=== PATIENT | male | born 1970 | race Caucasian/White ===

== ENCOUNTER 2018-11-23 08:33 | Emergency (ER) | payer OTHER, SELFPAY ==
--- NOTE | 2018-11-23 09:01 | DI.CT.S_ITS ---
PROCEDURE: CT HEAD/BRAIN WO CON INDICATIONS: dizziness, leaning to right side. TECHNIQUE: Noncontrast 4.5 mm thick angled axial sections acquired from the foramen magnum to the vertex, with coronal and sagittal reformats. For radiation dose reduction, the following was used: automated exposure control, adjustment of mA and/or kV according to patient size. COMPARISON: None. FINDINGS: Image quality: Diagnostic. CSF spaces: Basal cisterns are patent. No extra-axial fluid collections. Ventricles are normal in size and shape. Brain: No midline shift. No intracranial masses or hemorrhage. Hassan-white matter interface is normal. Skull and face: Calvarium and visualized facial bones are intact, without suspicious lesions. Sinuses: Visualized sinuses and mastoids are clear. IMPRESSION: Negative head CT. No acute intracranial hemorrhage. Dictated by: Javon Perry M.D. on 11/23/2018 at 8:31 Approved by: Javon Perry M.D. on 11/23/2018 at 8:32
[2018-11-23 09:21] VITALS: BP 145/81; PULSE 59; RESP 16; TEMP 36.8; O2SAT 97; BMI 31.4
[2018-11-23 09:24] LABS: Add Manual Diff / Slide Review NO; Basophils Absolute Auto 0 /uL (0-100); Basophils Percent Auto 0.5 % (0-2); Eosinophils Absolute Auto 300 /uL (0-450); Hematocrit 47.3 % (41-53); Hemoglobin 16.5 g/dL (13.5-17.5); Lymphocytes Absolute Auto 2000 /uL (1100-4500); Lymphocytes Percent Auto 22.1 % (25-40); Mean Corpuscular HGB Conc 34.9 % (30-36); Mean Corpuscular Hemoglobin 31.4 PG (26-34); Mean Corpuscular Volume 89.8 fL (80-100); Monocytes Absolute Auto 600 /uL (0-900); Monocytes Percent Auto 6.5 % (3-14); Neutrophils Absolute Auto 6100 /uL (1500-7000); Neutrophils Percent Auto 67.9 % (50-75); Platelet Count 229 X10^3/uL (150-400); Red Blood Cell Count 5.27 X10^6/uL (4.5-5.9)
[2018-11-23 09:38] LABS: BUN Creatinine Ratio 18.8 (6-22); Blood Urea Nitrogen 15 mg/dL (9-20); Calcium 9.5 mg/dL (8.4-10.2); Carbon Dioxide 22 mmol/L (22-32); Chloride 105 mmol/L (98-107); Estimated Glomerular Filt Rate > 60.0 mL/min (>60); Glucose 92 mg/dL (70-100); HEMOLYSIS 15 (0-50); Potassium 3.8 mmol/L (3.4-5.1); Sodium 138 mmol/L (137-145)
--- NOTE | 2018-11-23 09:39 | ED_ITS ---
HPI - Dizziness General Chief Complaint: Dizziness Stated Complaint: DIZZINESS/LEANS TO RIGHT/METALIC TASTE/LT HAND TIN Time Seen by Provider: 11/23/18 09:18 Source: patient Mode of arrival: ambulatory Limitations: no limitations History of Present Illness HPI Narrative: Patient is a 47-year-old male who presents with trouble walking. He says that for the last 5 days he walks to the right. It is not all the time in fact yesterday he was better today however at work he was leaning to the right he denies any dizziness lightheadedness he had some numbness in his left hand once on no specific weakness he has no nausea vomiting he has no sense of room spinning is no chest pain or heart palpitations. He feels like his symptoms have resolved now. MD complaint: lightheadedness Associated symptoms: ataxia Related Data Home Medications Medication Instructions Recorded Confirmed simvastatin 10 mg PO QPM #0 11/05/16 11/23/18 Bromelain 1 cap PO DAILY 11/23/18 11/23/18 Cinnamon 1 cap PO DAILY 11/23/18 11/23/18 aspirin 81 mg PO DAILY 11/23/18 11/23/18 garlic 1 tab PO DAILY 11/23/18 11/23/18 niacin 1 tab PO DAILY 11/23/18 11/23/18 omeprazole 20 mg PO Q OTHER DAY 11/23/18 11/23/18 Allergies Allergy/AdvReac Type Severity Reaction Status Date / Time Penicillins [PENICILLINS] Allergy Unknown Verified 11/23/18 09:21 Review of Systems Review of Systems ROS Unobtainable: All systems reviewed & are unremarkable except as noted in HPI and below Constitutional Denies chills, Denies fever(s), Denies frequent falls, Denies headache(s), De nies lethargy and Denies weakness Eyes Denies blurry vision, Denies change in vision, Denies diplopia, Denies eye discharge, Denies irritation and Denies loss of vision ENT Ears, Nose, Mouth, and Throat: Denies change in voice, Denies vertigo, Denies dizziness, Denies headache(s), Denies neck pain, Reports disequilibrium and Denies sore throat Cardiovascular Denies chest pain, Denies syncope, Denies irregular heart rhythm, Denies lightheadedness, Denies palpitations, Denies dyspnea, Denies dyspnea on exertion and Denies orthopnea Respiratory Denies cough, Denies dyspnea, Denies dyspnea on exertion and Denies wheezing Gastrointestinal Gastrointestinal: Denies abdominal pain, Denies change in bowel habits, Denies diarrhea, Denies nausea and Denies vomiting Musculoskeletal Denies neck pain Integumentary/Breasts Denies pruritus, Denies erythema, Denies rash and Denies wounds Neurologic Reports as per HPI, Denies confusion, Denies vertigo, Denies dizziness, Denies syncope, Denies frequent falls, Denies headache(s), Denies loss of vision, Denies convulsions, Denies sensory deficit, Reports disequilibrium and Denies weakness Psychiatric Denies anxiety, Denies confusion, Denies depression, Denies homicidal ideation and Denies suicidal ideation Endocrine Denies palpitations Allergic/Immunologic Denies wheezing [facility] Medical History Hyperlipidemia (Acute) Social History (Updated 11/23/18 @ 09:38 by Jeannie Islas DO) Smoking Status: Never smoker alcohol intake: never substance use type: does not use Social History Smoking Status: Never smoker alcohol intake: never substance use type: does not use Exam Initial Vital Signs Initial Vital Signs: Vital Signs Temperature 98.2 F 11/23/18 09:21 Pulse Rate 59 L 11/23/18 09:21 Respiratory Rate 16 11/23/18 09:21 Blood Pressure 145/81 H 11/23/18 09:21 Pulse Oximetry 97 11/23/18 09:21 GENERAL: Well-appearing, well-nourished and in no acute distress. Talking on self HEENT: Head atraumatic,EOMI, pupils reactive, face symmetric, moist mucous membranes CARDIOVASCULAR: Regular rate and rhythm without murmurs, rubs or gallops. RESPIRATORY: Breath sounds equal bilaterally, no wheezes rales or rhonchi. ABDOMEN: Soft, nontender. Normoactive bowel sounds all 4 quadrants. No guarding or rebound. EXTREMITIES: Normal range of motion, no clubbing or edema. Neurovascularly intact NEUROLOGICAL: Alert and oriented x4.Normal gait and speech. Transportation Superintendent strength equal bilaterally good finger to nose good heel to larios bilaterally. No speech difficulty SKIN: Warm, dry, no laceration, no petechiae, no rashes or lesions. Scores NIH Stroke Scale Level of Conciousness: Alert, keenly responsive Ask month/age: Answers both questions correctly. Open/close eyes, close hand: Performs both tasks correctly Best gaze horizontal: Normal Visual mayer: No visual loss Facial palsy: Normal symetrical movement Left arm drift: No drift for full 10 sec Right arm drift: No drift for full 10 sec Left leg drift: No drift for full 10 sec Right leg drift: No drift for full 10 sec Limb ataxia: Absent Sensory on face/arms/legs: Normal, no sensory loss Best language: No aphasia, normal Dysarthria: Normal Extinction or inattention: No abnormality Total NIH Stroke scale score: 0 Course Orders Ordered: ED Orders 11/23/18 09:57 EKG-12 Lead Stat 11/23/18 10:49 CT angio head and neck Stat Vital Signs - 8 hr 11/23/18 11:00 Pulse Rate 54 L Respiratory Rate 18 Blood Pressure [Right Arm] 140/70 Pulse Oximetry 96 MDM - Dizziness Lab Data Attestation: I reviewed the patient's lab results. Result diagrams: 11/23/18 09:15 11/23/18 09:15 Lab Results 11/23/18 11/23/18 Range/Units 09:15 09:15 WBC 9.0 (4.5-11.0) X10^3/uL RBC 5.27 (4.5-5.9) X10^6/uL Hgb 16.5 (13.5-17.5) g/dL Hct 47.3 (41-53) % MCV 89.8 (80-100) fL MCH 31.4 (26-34) PG MCHC 34.9 (30-36) % RDW 13.0 (11.6-14.8) % Plt Count 229 (150-400) X10^3/uL Neut % (Auto) 67.9 (50-75) % Lymph % (Auto) 22.1 L (25-40) % Boyd % (Auto) 6.5 (3-14) % Eos % (Auto) 3.0 (2-4) % Baso % (Auto) 0.5 (0-2) % Neut # (Auto) 6100 (5133-4755) /uL Lymph # (Auto) 2000 (0312-0669) /uL Boyd # (Auto) 600 (0-900) /uL Eos # (Auto) 300 (0-450) /uL Baso # (Auto) 0 (0-100) /uL Sodium 138 (137-145) mmol/L Potassium 3.8 (3.4-5.1) mmol/L Chloride 105 (98-107) mmol/L Carbon Dioxide 22 (22-32) mmol/L BUN 15 (9-20) mg/dL Creatinine 0.80 (0.66-1.25) mg/dL Estimated GFR > 60.0 (>60) mL/min BUN/Creatinine Ratio 18.8 (6-22) Glucose 92 (70-100) mg/dL Calcium 9.5 (8.4-10.2) mg/dL Troponin I < 0.012 (0.01-0.034) ng/mL Urine Dip Bedside Urine Glucose Negative Bedside Urine Bilirubin - Negative Bedside Urine Ketone +/- 5 Urine Specific [place] 1.015 Bedside Urine Occult Blood - Negative Bedside Urine pH 6.0 Bedside Urine Protein - Negative Bedside Urine Urobilinogen - Negative Bedside Urine Nitrite - Negative Bedside Urine Leukocytes - Negative Esterase Imaging Data CTA Head: Radiologist's impression: PROCEDURE: CT ANGIO HEAD AND NECK INDICATIONS: leaning to right while walking TECHNIQUE: Pre-contrast 4.5 mm thick sections acquired from the foramen magnum to the vertex. After the administration of intravenous contrast, 1 mm thick sections acquired from the aortic arch through the [place] of [place]. Post-contrast 4.5 mm thick sections then re- acquired from the foramen magnum to the vertex. 3-dimensional maximum-intensity- projection (MIP) and/or volume rendering reformats were acquired of the central intracranial vasculature and neck separately. COMPARISON: [facility], CT, CT HEAD/BRAIN WO CON, 11/23/2018, 9:07. FINDINGS: Image quality: Excellent. BRAIN: CSF spaces: Ventricles are normal in size and shape. Basal cisterns are patent. No extra-axial fluid collections. Brain: No midline shift. No masses. Hassan-white matter interface appears intact. Skull and face: Calvarium and facial bones appear intact, without suspicious lesions. Orbits appear normal. Sinuses: Bilateral maxillary sinus mucosal thickening. mastoids are clear. HEAD CT ANGIOGRAPHY: Anterior circulation: Intracranial internal carotid arteries are normal in size and flow. The flow within the paired anterior cerebral arteries is normal and symmetric. Minimal atherosclerotic calcifications of the supraclinoid segment of the right internal carotid artery without hemodynamically significant stenosis. The flow within the middle cerebral arteries is normal and symmetric. The anterior communicating artery is seen. No aneurysms are seen. Posterior circulation: Visualized portions of the vertebral arteries demonstrate normal caliber, and join to form a normal appearing basilar artery. Flow within the posterior cerebral arteries is normal and symmetric. No aneurysms are seen. NECK CT ANGIOGRAPHY: Carotid system: The great vessels demonstrate a conventional anatomy as they arise from the aortic arch. The origins of the common carotid arteries appear patent. The common carotid arteries demonstrate normal caliber and courses. The bifurcation regions are both widely patent. The internal carotid arteries demonstrate normal calibers and courses. Posterior circulation: The origins of the vertebral arteries both appear widely patent. The more superior extracranial portions of both vertebral arteries also demonstrate normal courses and calibers. They join to form a normal appearing basilar artery. Soft tissues: Visualized neck soft tissues demonstrate no suspicious abnormalities. Bones: No suspicious bony lesions. Visualized cervical spine appears normally aligned. Mild multilevel cervical spondylosis. IMPRESSION: Negative CT angiogram of the head and neck. Minimal intracranial atherosclerosis involving the supraclinoid right internal carotid artery without hemodynamically significant stenosis. Any quantitative measurements of stenosis were performed using NASCET criteria. Dictated by: Duarte Garcia M.D. on 11/23/2018 at 11:24 CT scan - head: Radiologist's impression: PROCEDURE: CT HEAD/BRAIN WO CON INDICATIONS: dizziness, leaning to right side. TECHNIQUE: Noncontrast 4.5 mm thick angled axial sections acquired from the foramen magnum to the vertex, with coronal and sagittal reformats. For radiation dose reduction, the following was used: automated exposure control, adjustment of mA and/or kV according to patient size. COMPARISON: None. FINDINGS: Image quality: Diagnostic. CSF spaces: Basal cisterns are patent. No extra-axial fluid collections. Ventricles are normal in size and shape. Brain: No midline shift. No intracranial masses or hemorrhage. Hassan-white matter interface is normal. Skull and face: Calvarium and visualized facial bones are intact, without suspicious lesions. Sinuses: Visualized sinuses and mastoids are clear. IMPRESSION: Negative head CT. No acute intracranial hemorrhage. Dictated by: Javon Perry M.D. on 11/23/2018 at 8:31 ECG Data Attestation: I personally reviewed and interpreted this ECG as follows: Prior ECG tracings: not available for review Interpretation: Normal sinus rhythm rate [address] changes per interval 176 no priors to compare MDM Narrative Medical decision making narrative: I personally did an ambulation trial of patient myself. He does not actually leaned to the right over his symptoms do not fit with classic vertigo. He does not have sense of room spinning he has no nausea or vomiting. Symptoms are purely chest difficulty walking and leaning to 1 side. This time I think it is worthwhile to do a CTA to rule out any sort of obstruction and the CT carotid arteries as well. CTA was negative. Patient remains asymptomatic he is upright while ambulating he feels like his symptoms have completely resolved. Symptoms are not consistent with TIA or CVA. At this time have patient follow-up and return as needed. I did discuss with him specific warning signs and when to return to the ED. Discharge Plan Departure Patient Disposition: Home Clinical Impression: Vertigo Discharge Date/Time: 11/23/18 11:49 Interventions: ED Discharge Assessment Last Done: 11/23/18 11:49 Instructions: DI for Vertigo Activity Restrictions/Additional Instructions: *You have been diagnosed with vertigo *What to do: Vertigo stops suddenly as it starts. Both CTs of her head today are negative for stroke. *Continue to take medications as directed *Follow up with your primary care provider in 2-3 days *Return to ER if you should have weakness, persistent dizziness, vomiting, passing out or any new, worsening or concerning symptoms Prescriptions: No Action simvastatin 10 MG tablet 10 mg PO QPM Qty: 0 RF: 0 omeprazole 20 mg capsule,delayed release(DR/EC) 20 mg PO Q OTHER DAY RF: 0 aspirin 81 mg Tablet,Delayed Release (Dr/Ec) 81 mg PO DAILY RF: 0 garlic Tablet 1 tab PO DAILY RF: 0 Bromelain 1 cap PO DAILY RF: 0 Cinnamon 1 cap PO DAILY RF: 0 niacin 1 tab PO DAILY RF: 0
[2018-11-23 09:50] LABS: Troponin I < 0.012 ng/mL (0.01-0.034)
--- NOTE | 2018-11-23 10:49 | DI.CT.S_ITS ---
PROCEDURE: CT ANGIO HEAD AND NECK INDICATIONS: leaning to right while walking TECHNIQUE: Pre-contrast 4.5 mm thick sections acquired from the foramen magnum to the vertex. After the administration of intravenous contrast, 1 mm thick sections acquired from the aortic arch through the [place] of [place]. Post-contrast 4.5 mm thick sections then re-acquired from the foramen magnum to the vertex. 3-dimensional apgugii-dzjcsonem-zdraxbmivo (MIP) and/or volume rendering reformats were acquired of the central intracranial vasculature and neck separately. COMPARISON: [facility], CT, CT HEAD/BRAIN WO CON, 11/23/2018, 9:07. FINDINGS: Image quality: Excellent. BRAIN: CSF spaces: Ventricles are normal in size and shape. Basal cisterns are patent. No extra-axial fluid collections. Brain: No midline shift. No masses. Hassan-white matter interface appears intact. Skull and face: Calvarium and facial bones appear intact, without suspicious lesions. Orbits appear normal. Sinuses: Bilateral maxillary sinus mucosal thickening. mastoids are clear. HEAD CT ANGIOGRAPHY: Anterior circulation: Intracranial internal carotid arteries are normal in size and flow. The flow within the paired anterior cerebral arteries is normal and symmetric. Minimal atherosclerotic calcifications of the supraclinoid segment of the right internal carotid artery without hemodynamically significant stenosis. The flow within the middle cerebral arteries is normal and symmetric. The anterior communicating artery is seen. No aneurysms are seen. Posterior circulation: Visualized portions of the vertebral arteries demonstrate normal caliber, and join to form a normal appearing basilar artery. Flow within the posterior cerebral arteries is normal and symmetric. No aneurysms are seen. NECK CT ANGIOGRAPHY: Carotid system: The great vessels demonstrate a conventional anatomy as they arise from the aortic arch. The origins of the common carotid arteries appear patent. The common carotid arteries demonstrate normal caliber and courses. The bifurcation regions are both widely patent. The internal carotid arteries demonstrate normal calibers and courses. Posterior circulation: The origins of the vertebral arteries both appear widely patent. The more superior extracranial portions of both vertebral arteries also demonstrate normal courses and calibers. They join to form a normal appearing basilar artery. Soft tissues: Visualized neck soft tissues demonstrate no suspicious abnormalities. Bones: No suspicious bony lesions. Visualized cervical spine appears normally aligned. Mild multilevel cervical spondylosis. IMPRESSION: Negative CT angiogram of the head and neck. Minimal intracranial atherosclerosis involving the supraclinoid right internal carotid artery without hemodynamically significant stenosis. Any quantitative measurements of stenosis were performed using NASCET criteria. Dictated by: Duarte Garcia M.D. on 11/23/2018 at 11:24 Approved by: Duarte Garcia M.D. on 11/23/2018 at 11:39
[2018-11-23 11:00] VITALS: BP 140/70; PULSE 54; RESP 18; O2SAT 96
== END 2018-11-23 11:49 | disposition home or self-care (01) ==
PROVIDERS: Emergency Provider Emergency Medicine
DX: R42 Dizziness and giddiness (principal)
CPT/HCPCS: 36591; 70450; 70496; 70498; 80048; 81003; 84484; 85025; 93005; 99282; 99285; Q9967

== ENCOUNTER → 2020-11-12 09:14 | Outpatient (CLI) | payer OTHER, SELFPAY ==
[2020-11-12] MEDS: COVID-19 VACC #1, MRNA(MOD) 100 MCG/0.5 ML VIAL IM (09:32)
== END ==
PROVIDERS: Visit Provider Internal Medicine
DX: Z23 Encounter for immunization (principal)
CPT/HCPCS: 0011A; 91301

== ENCOUNTER → 2020-12-10 08:44 | Outpatient (CLI) | payer OTHER, SELFPAY ==
[2020-12-10] MEDS: COVID-19 VACC #2, MRNA(MOD) 100 MCG/0.5 ML VIAL IM (08:56)
== END ==
PROVIDERS: Visit Provider Internal Medicine
DX: Z23 Encounter for immunization (principal)
CPT/HCPCS: 0012A; 91301

== ENCOUNTER → 2024-06-07 08:31 | Outpatient (CLI) | payer OTHER, SELFPAY ==
--- NOTE | 2024-06-07 08:35 | EKG_ITS ---
[id number] [place] [address] Test Date: 2024-06-07 Pat Name: Jacinto Guerrier Department: Room: Gender: Male Oncology Admin: : 1970 Requested By: Order Number: [id number] Reading MD: Terrence Paulino MD Measurements Intervals Marlette Rate: 69 P: 9 MO: 170 QRS: -48 QRSD: 96 T: 8 QT: 382 QTc: 409 Interpretive Statements Normal sinus rhythm with sinus arrhythmia Left anterior fascicular block Electronically Signed On 06-08-2024 7:31:31 PDT by Terrence Paulino MD
[2024-06-07 10:29] LABS: Add Manual Diff / Slide Review NO; Basophils Absolute Auto 0 /uL (0-100); Basophils Percent Auto 0.6 % (0-2); Eosinophils Absolute Auto 300 /uL (0-450); Eosinophils Percent Auto 3.6 % (2-4); Hematocrit 44.5 % (41-53); Hemoglobin 15.5 g/dL (13.5-17.5); Lymphocytes Absolute Auto 2300 /uL (1100-4500); Lymphocytes Percent Auto 27.7 % (25-40); Mean Corpuscular HGB Conc 34.9 % (30-36); Mean Corpuscular Hemoglobin 31.1 PG (26-34); Monocytes Absolute Auto 500 /uL (0-900); Monocytes Percent Auto 5.6 % (3-14); Neutrophils Absolute Auto 5200 /uL (1500-7000); Neutrophils Percent Auto 62.5 % (50-75); Platelet Count 278 X10^3/uL (150-400); Red Cell Distribution Width 13.6 % (11.6-14.8); White Blood Cell Count 8.3 X10^3/uL (4.5-11.0)
[2024-06-07 10:47] LABS: Hemoglobin A1C% w Est Avg Glu 5.1 % (4.0-6.0)
[2024-06-07 10:56] LABS: Albumin 4.5 g/dL (3.5-5.0); BUN Creatinine Ratio 17.9 (6-22); Blood Urea Nitrogen 12 mg/dL (9-20); Calcium 9.9 mg/dL (8.4-10.2); Carbon Dioxide 21 mmol/L (22-32); Chloride 105 mmol/L (98-107); Estimated Glomerular Filt Rate > 60 mL/min (>60); Glucose 120 mg/dL (70-100); HEMOLYSIS < 15 (0-50); Potassium 4.5 mmol/L (3.4-5.1); Sodium 137 mmol/L (137-145)
[2024-06-07 11:13] LABS: Vitamin D 25 Hydroxy (D3) 30.8 ng/mL (30.0-100.0)
[2024-06-07 11:19] LABS: Prealbumin 51.7 mg/dL (17.6-36.0)
== END ==
PROVIDERS: PCP Physician Assistant Medical; Referring Provider Orthopaedic Surgery Adult Reconstructive Orthopaedic Surgery; Visit Provider Orthopaedic Surgery Adult Reconstructive Orthopaedic Surgery
DX: Z01.818 Encounter for other preprocedural examination (principal); R77.0 Abnormality of albumin; E55.9 Vitamin D deficiency, unspecified; R73.9 Hyperglycemia, unspecified; Z01.812 Encounter for preprocedural laboratory examination
CPT/HCPCS: 36415; 80048; 82040; 82306; 83036; 84134; 85025; 93005; 93010

== ENCOUNTER 2024-08-13 06:00 | Day surgery (SDC) | payer OTHER, SELFPAY ==
[2024-07-31 08:27] VITALS: BMI 36.2
[2024-08-13] VITALS (13 sets, daily range): BP systolic 132–159; BP diastolic 82–99; PULSE 68–108; RESP 12–20; TEMP 35.9–37.1; O2SAT 93–97; BMI 36.2
--- NOTE | 2024-08-13 | DI.RAD.S_ITS ---
PROCEDURE: XR HIP W PEL IF DONE LT 2V INDICATIONS: LT TOTAL HIP TECHNIQUE: Intraoperative images COMPARISON: [facility], CR, XR HIP W PEL IF DONE LT 2V, 08/13/2024, 10:21. FINDINGS: Intraoperative images demonstrate a left hip total arthroplasty in progress. IMPRESSION: Intraoperative images of left hip total arthroplasty. Please see the operative report for further details Dictated by: Javon Peralta M.D. on 08/13/2024 at 13:13 Approved by: Javon Peralta M.D. on 08/13/2024 at 13:14
--- NOTE | 2024-08-13 06:38 | DI.RAD.S_ITS ---
PROCEDURE: XR HIP W PEL IF DONE LT 2V INDICATIONS: STACIA TECHNIQUE: 2 views of the hip were acquired. COMPARISON: [facility], , XR HIP W PEL IF DONE LT 2V, 08/13/2024, 8:57. FINDINGS: Bones: Left hip arthroplasty in place. Soft tissues: Soft tissue postsurgical changes. IMPRESSION: Postsurgical changes of left hip arthroplasty. Dictated by: Naga Lee M.D. on 08/13/2024 at 13:33 Approved by: Naga Lee M.D. on 08/13/2024 at 13:33
[2024-08-13] MEDS: LACTATED RINGERS 1,000 ML 42 ML IV (06:56)
[2024-08-13] MEDS: MELOXICAM 7.5 MG TABLET PO (06:59)
[2024-08-13] MEDS: ACETAMINOPHEN 325 MG TABLET 975 MG PO (06:59)
--- NOTE | 2024-08-13 07:24 | SUR.OPER ---
Patient supine on padded [place] table, one arm on padded arm board at <90, other arm padded and secured with tape across patient's chest, both legs secured in padded traction boots and positioned per surgeon, padded post at patient's groin, pressure points checked and padded.
--- NOTE | 2024-08-13 07:45 | PM.PREOP ---
Pre-operative Note Interval Note History & Physical reviewed/Exam performed by Physician: Yes Changes to H&P: No
[2024-08-13] MEDS: CEFAZOLIN 2 GM/100 ML PREMIX 100 ML IV ×2 (08:09→15:17)
[2024-08-13] MEDS: TRANEXAMIC ACID 1,000 MG VIAL 1000 MG INJ ×2 (08:11→09:35)
[2024-08-13] MEDS: ROPIVACAINE/EPI/CLONIDINE/KET 50 ML SYRINGE INJ (08:28)
--- NOTE | 2024-08-13 09:48 | P.OP_ITS ---
Operative Date/Time/Diagnoses Date of procedure: 08/13/24 Pre-op diagnosis: Left hip osteoarthritis Post-op diagnosis: same Procedure & Clinicians Procedure: Left total hip arthroplasty Same procedure as scheduled: Yes Surgeon: Jw Castro Collection Technician: Sonia Arevalo Anesthesia Type: Spinal, Sedation and Local Operative Notes Estimated Blood Loss (mL): 250 Procedure in detail: Left Uncemented Direct Anterior Depuy Total Hip Arthroplasty: Implants: * [place] Gription size 54 cup? * Actis femoral stem size 8 high offset? * 36 mm +1.5 ceramic femoral head? Procedure Summary: This 53-year-old male patient was a cigarette smoker at the time of my evaluation of him for left hip arthritis. Prior to proceeding with a left total hip arthroplasty he stopped smoking and this was verified with a negative codeine test. Intraoperatively he had good stability, leg lengths, and offset with the initially utilized trials. I had initially templated him for a size 7 with a +5 head but ended up using an 8 broach and therefore downsized to a +1.5 head to result in the same leg length and offset as templated. These final implants were utilized Procedure in Detail: This patient was seen preoperatively and evaluated for hip pain which was refractory to numerous nonoperative treatment modalities. Their hip pain correlated with radiographic changes demonstrating significant degeneration in the hip joint. The risks and benefits of continued nonoperative management versus operative management were discussed at length and all of the patient?s questions were answered. Additional educational materials providing further details beyond our discussion in clinic were provided via a publicly available patient education video which included the incidence of medical complications associated with total hip arthroplasty, reasons for revision following total hip arthroplasty, and patient satisfaction rates following total hip arthroplasty. That video can be accessed at [email or web address] . With this understanding of the risks inherent to the procedure, the patient elected to move forward with operative management. Following preoperative optimization, the patient was scheduled for surgery. The patient was met in the preoperative holding area the day of the procedure and all qu estions were answered. The patient?s nares were swabbed with betadine in order to decolonize them from MRSA. Informed consent was signed and the left limb was marked with indelible ink.? The patient was brought back to the operating room where anesthesia was induced. The patient was transferred to the [place] table and all bony prominences were padded. The operative site was prepped and draped in the usual sterile fashion. Prior to incision, tranexamic acid and cefazolin were administered. Operative templating images were displayed demonstrating the anticipated implant sizes and correct operative extremity. A timeout procedure was performed verifying the patient?s identity, medical comorbidities, allergies, relevant medications, anesthesia type and the surgical plan. All present were in agreement. The assistance of a physician assistant restaurant general manager was required for positioning, room setup, soft tissue retraction and wound closure. Without this assistance, the procedure would have been significantly more challenging and time consuming.?? A direct anterior approach to the hip was utilized. This was performed with a longitudinal incision through a Heuter interval. The incision was planned 2 cm d istal and 2 cm lateral to the ASIS extending towards the lateral patella, in line with the muscle body of the TFL. Following incision, the subcutaneous tissue was dissected while taking care to avoid injury to the lateral femoral cutaneous nerve. The fascia overlying the TFL was identified by dissecting off the overlying fat and identifying perforating vessels to the TFL. The TFL fascia was incised and dissected away from the medial border of the TFL. A cobra retractor was placed over the superior femoral neck between the abductors and the hip capsule and used to reflect the TFL laterally. A [place] self-retainer was then placed in the distal aspect of the wound between the TFL and the rectus femoris. This was tensioned to open up the direct anterior interval and the lateral circumflex vessels were identified and coagulated using electrocautery. The floor of the TFL fascia was incised, exposing the pericapsular fat overlying the hip capsule. A second cobra retractor was placed on the inferior femoral neck. A double-bent soft tissue retractor was placed on the anterior wall of the acetabulum and used to tension the reflected head of rectus femoris, which was then released in order to limit soft tissue tension. A capsulotomy was made in the midline of the anterior hip capsule in line with the femoral neck ending at the vastus tubercle. The double-bent retractor was removed in order to limit the amount of time that a soft tissue retractor remained on the anterior wall and protect the femoral nerve. Tag stitches were placed in the superior and inferior leaflets of the hip capsule. An Glenn soft tissue retractor was introduced over the tag stitches and tensioned in the interval between the rectus femoris and the TFL in order to retract and protect those muscles. The cobra retractors were replaced intracapsularly, with one over the superior neck in the pocket created by the base of the greater trochanter and the other on the femoral head. The capsulotomy was extended laterally to the base of the greater trochanter and medially to the lesser trochanter. This required externally rotating the hip. Once the lesser trochanter had been identified, a neck cut was planned according to measurements from preoperative templating. A ruler was cut at the length measured between the superior aspect of the lesser trochanter and the collar of the prosthesis. This line was extended towards the inferior aspect of the lateral cobra retractor to plan a cut which would leave minimal residual femoral neck laterally. The neck was cut at 60 degrees of external rotation along that line. A second cut was performed to remove a large napkin ring and facilitate head extraction. The napkin ring cut and femoral head were removed.?? A broad anterior wall retractor was placed between the labrum and the anterior capsule so that the anterior capsule would prevent capturing and pinching the femoral nerve anteriorly. An additional retractor was placed on the posterior wall. External rotation and traction were applied through the [place] table so that the cut surface of the femoral neck would not restrict access to the acetabulum. The labrum was excised sharply and the pulvinar was excised with electrocautery to limit bleeding from branches of the obturator artery. Acetabular reamers were selected based on preoperative templating and measurements of the excised femoral head. These were introduced into the acetabulum. Fluoroscopy was utilized to replicate a standing AP pelvis radiograph by centering over the pelvis, rotating until there was appropriate symmetry between the obturator foramen, and introducing caudal tilt to match the position of the pubic symphysis relative to the sacrococcygeal junction according to the patient?s anatomy. Fluoroscopy was utilized to ensure appropriate reaming depth. Once satisfied with the reaming depth corresponding to the preoperative template and the pinch fit between the columns, an appropriate sized acetabular cup was selected which would provide 1 mm of press-fit. This cup was introduced and manipulated until appropriate abduction and anteversion angles were obtained with careful attention to appropriate abduction and anteversion angles as evaluated by the position of the cup relative to the anterior and posterior beltran of the acetabulum and the AP fluoroscopy which recreated the patient?s standing radiograph. The cup was impacted into place. Peripheral osteophytes were removed. The acetabular liner was then placed with care to ensure locking of the locking mechanism.? Attention was then turned to the femur. All retractors were removed, traction was released, a retractor was placed in the interval between the hip capsule and the gluteus minimus, and the hip was externally rotated to 90 degrees. Traction was applied through the [place] table to tension the lateral capsule and this was released using electrocautery. Traction was released and a [place] hook was placed posteriorly around the proximal femur at the level of the vastus ridge. The table height was lowered in order to restrict the tension on the anterior structures during hip hyperextension to limit the risk of femoral nerve palsy. With traction off and the hip at 90 degrees of external rotation, the hip was hyperextended and adducted while manually elevating the femur away from the acetabulum with the [place] hook to ensure it would not be caught behind the greater trochanter. An asymmetric retractor was placed over the calcar and a broad double-pronged retractor was placed over the greater trochanter. The tag stitch capturing the lateral leaflet of the capsule was moved to the medial side, leaving the conjoined and piriformis tendons isolated in the face of the greater trochanter. The hip was externally rotated and elevated. A release of the conjoined tendon was not necessary in order to obtain adequate exposure for broaching. The canal was opened with an opening broach and a rasp was used to remove cancellous bone. A rongeur was used to remove the residual lateral bone at the base of the greater trochanter to avoid placing the stem in varus. The femur was then broached to the appropriate sized stem yielding good rotational fit and fill of the canal as well as appropriate version of the stem trial. Neck and head trials were placed, all retractors were removed and the hip was returned to neutral abduction and extension. I then reduced the hip. Initial trialing was performed with a size 8 broach, a high offset neck and a +1.5 head. I initially manually externally rotated the hip and found no instability. I then locked the hip in 45 degrees of external rotation and dropped it to the floor with traction off which demonstrated no instability. An AP pelvis fluoroscopic image matching the preoperative standing radiograph with both lesser trochanters visible and both hips in 40 degrees of external rotation demonstrated appropriate leg lengths. Offset initially appeared to be slightly decreased compared to the preoperative templating images however after adjusting hip abduction this appeared more appropriate. AP and lateral hip fluoroscopic images were obtained to evaluate the broach size which demonstrated good canal fill. The hip was dislocated and I returned to the broaching position. Based on my evaluation during initial trialing I planned to place the definitive implants. The definitive stem was placed and the trunnion was cleaned and dried. I placed a ceramic head onto the trunnion and impacted it into place on the [employer] taper.?? All retractors were removed and the hip was reduced. A dilute mixture of bet adine and peroxide was used to bathe the soft tissues during final fluoroscopic assessment. Appropriate component positioning was confirmed on an AP pelvis radiograph with the operative and nonoperative legs in 40 degrees of external rotation, evaluating leg length and offset. Appropriate stem fill was evaluated on AP and lateral hip radiographs. No fractures were identified on these radiographs. There was no hip instability with maximum (120?) external rotation as well as a 45 degree drop test. The hip was copiously irrigated with pulse lavage. The capsule was closed with absorbable interrupted suture. The TFL fascia was closed with barbed suture while carefully protecting the lateral femoral cutaneous nerve from entrapment. A mixture of Ropivacaine, Epinephrine, Clonidine and Toradol was infiltrated throughout the soft tissues. The skin was closed with 2-0 and 3-0 sutures. Surgical glue was applied and a soft dressing was placed.??The sponge, instrument and needle counts were reported as being correct at the end of the case.??No obvious complications occurred. The patient was transferred from the [facility] back to a stretcher. The patient emerged from anesthesia without difficulty and was taken to the PACU in a stable condition.? Plan for aftercare: * Anterior hip precautions * Weightbearing as tolerated * Aspirin 81 twice per day for DVT prophylaxis * Anticipate discharge home today * Change into normal clothes upon arrival on the hospital floor * Mobilize in the halls as much as is logistically possible. If physical therapy is unavailable for mobilization, then patient should mobilize with nursing staff * Multimodal pain regimen with no IV opioids ordered * Apply ice machine to operative hip. Ensure that sufficient ice is in the chamber for the pad to remain cold * Follow up at [facility] in 2 weeks * Detailed postoperative instructions available at [email or web address]
[2024-08-13] MEDS: LORazepam 2 MG/ML INJ 0.5 MG IV (10:15)
[2024-08-13] MEDS: OXYCODONE IR 5 MG TABLET PO (11:18)
[2024-08-13] MEDS: ONDANSETRON 4 MG/2 ML INJ IV (11:50)
[2024-08-13] MEDS: LACTATED RINGERS 1,000 ML 100 ML IV (11:52)
[2024-08-13] MEDS: IBUPROFEN 600 MG TABLET PO ×2 (12:30→17:00)
[2024-08-13] MEDS: TRAMADOL 50 MG TABLET PO ×2 (12:31→17:00)
[2024-08-13] MEDS: polyethylene glycoL 3350 17 GM POWD.PACK PO (12:32)
--- NOTE | 2024-08-13 14:05 | PC.NURSE ---
Addendum entered by Lakia De R.N. 08/13/24 17:50: 1750 Patient off floor via wheelchair. Belongings and discharge paperwork in possession. Addendum entered by Lakia De R.N. 08/13/24 17:42: 1742 Discharge instructions provided. Patient and verbalized understanding. IV to left arm removed and bandage applied. Patient with belongings. No complaints at this time. Addendum entered by Lakia De R.N. 08/13/24 17:10: 1730 Call placed to MD Metcalf regarding patient discharge. Patient okay to be discharged tonight. MD to place orders as soon as able. Addendum entered by Lakia De R.N. 08/13/24 14:46: 1446 Call placed to MD Castro. Okay for order for TUMS per patient request. Original Note: 1130 Patient arrived to unit. 1215 Report received from dry charge process attendant. Patient AAO x's 3. Able to GUZMAN, dressing noted to L hip, clean, dry and intact. Patient complaining of nausea, zofran previously administered. Patient complaining of pain 5/10 to left hip, medication administered. Call light within reach and bed in lowest position. 1400 PT at the bedside. 1407 Attempted to call PA continuous towel roller regarding patient requesting TUMS. No answer will call again later.
--- NOTE | 2024-08-13 14:38 | PT.IIE ---
Current Diagnoses Unilateral primary osteoarthritis, left hip (08/13/24) Surgery Performed Operation Date: 08/13/24 07:45 Actual Procedures p Total Hip Arthroplasty/Anterior Approach(Left) - Jw Castro MD Surgical History (Last Updated 07/31/24 @ 09:22 by Lorena Mart, RN) History of colonoscopy History of foot surgery Medical History (Last Updated 07/31/24 @ 09:22 by Lorena Mart, RN) Borderline hypertension Hyperlipidemia Physical Therapy Inpatient Evaluation/Re-Eval M1 PT/OT-IP Prior Functional Status Start: 08/13/24 12:22 Freq: NEEDED Status: Active Protocol: Document 08/13/24 13:40 MB (Rec: 08/13/24 14:38 MB [id number]) Medical Review Prior Functional Status Medical History Reviewed Yes Diet/Fluid Consistency Regular Communication WNLs Mobility and Gait I Activities of Daily Living and IADL's Signifcant other assits with donning left shoe and sock Social History Household Members spouse Living Arrangements Apartment/Condo Number of Floors (Floors) One Floor Home Environment Standard Height Toilet,Walk in Shower Home Equipment Bedside Commode Employment Status Senior Maintenance Mechanic Employed Additional Social History Comment 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, he has OPPT starting on 08/23/24 M2 PT-IP Current Condition Start: 08/13/24 12:22 Freq: NEEDED Status: Active Protocol: Document 08/13/24 13:40 MB (Rec: 08/13/24 14:38 MB [id number]) Physical Therapy Current Condition Current Condition Evaluation Date 08/13/24 Treatment Diagnosis L anterior STACIA M3 PT-IP Subjective Start: 08/13/24 12:22 Freq: NEEDED Status: Active Protocol: Document 08/13/24 13:40 MB (Rec: 08/13/24 14:38 MB [id number]) Subjective Physical Therapy Visit Type Type Initial Evaluation Visit Start Time 13:40 Visit Stop Time 14:20 Number of COMMUNICATIONS ENGINEERING TECHNICIAN Visits 0 Physical Therapy Visit Comments Patient Comments Pt reports low pain but feeling woozy after surgery. Therapy Pain Assessment Pain When Pain Assessed At Rest Pain Present Pain Present Pain Reported Location Left Hip Intensity 2 Scale Used Numeric (0 - 10) M4 PT-IP Mobility and Gait Start: 08/13/24 12:22 Freq: NEEDED Status: Active Protocol: Document 08/13/24 13:40 MB (Rec: 08/13/24 14:38 MB [id number]) PT-Bed Mobility Assessment Rolling Level of Assist Independent Supine to Sit Supine to Sit Independent Scooting Scooting to Edge of Bed Standby Assistance PT-Transfer Assessment Sit to and From Stand Sit to and from Stand Standby Assistance,1 Person Assistance,Use of Upper Extremities Equipment Transfer Assistive Device Gait Belt,Front Wheeled Walker Orthotic/Prosthetic Devices or Brace: No Transfers Transfer Destination Chair Transfer Technique Ambulation Transfer Ability Level of Assist Standby Assistance,1 Person Assistance,Use of Upper Extremities Comments Mobility Comments Education on hand placement, benefits of RW as opposed to SW that he brought in Gait Assessment Gait Gait Assistance Required: Standby Assistance Distance (Feet) 80 Able to Maintain Weight Bearing Status Yes During Gait Assistive Devices Assistive Device Gait Belt,Front Wheeled Walker Orthotic/Prosthetic Devices or Brace: No Gait Deviations General Gait Pattern Antalgic,Decreased Stride Length,Decreased Feet Clearance,Step-to Gait Factors Limiting Gait Function Factors Limiting Gait Function Decreased Activity Tolerance, Pain Comments Gait Comments 80'x2 and pt does feel a little woozy with gait. Orthostatics are negative with BP and HR LUE: hook lying with HOB slightly increased: 149/91, 81; standing 140/94, 81; standing 1' 148/95, 89; after gait 141/89, 84. PT-Balance Assessment Sitting Balance and Reactions Static Sitting Balance Ability Good Dynamic Sitting Balance Ability Good Standing Balance and Reactions Static Standing Balance Ability Good Dynamic Standing Balance Ability Fair Device Used RW M5 PT-IP Objective Assessments Start: 08/13/24 12:22 Freq: NEEDED Status: Active Protocol: Document 08/13/24 13:40 MB (Rec: 08/13/24 14:38 [id number]) Orientation Orientation/Cognition Level of Alertness Alert Orientation Name,Age,Birthday,Month,Date, Year,Day of Week,Place, Situation Language Function Ability No Deficits Noted Safety Awareness Understands Safety Issues Memory Description No Deficits Noted Gross Range of Motion Upper Extremity ROM Impairments NT, appear functional Lower Extremity ROM Assessment Left Impaired Impairments Moves left toes, ankle and knee well post-op Strength Lower Extremity Strength Assessment Left Impaired Comments Strength Comments MMT LLE not test and ankle and toes appear functional, some mild buckling occ at hip to begin with gait and at end of gait when pt c/o deep cramping near anterior hip incision in the left Coordination Assessment Gross Coordination Gross Coordination Impaired Assessment Coordination Comments Slow post-op Sensation Assessment Comments Sensation Comments Pt reports sensation intact post-op M6 PT-IP Treatment Start: 08/13/24 12:22 Freq: NEEDED Status: Active Protocol: Document 08/13/24 13:40 MB (Rec: 08/13/24 14:38 MB [id number]) Physical Therapy Treatment Exercises Exercises Ankle Pumps,Gluteal Sets,Quad Sets,Heel Slides Education Education Provided Precautions,Weight Bearing Status,Post-Op Packet,Safety Other Treatments Other Treatment Performed PT obtains RE for pt and ed pt in no hyperextension and exercises, checking in with OPPT to confirm OPPT appointment, which he does when PT is out of room M7 PT-IP Assessment and Plan Start: 08/13/24 12:22 Freq: NEEDED Status: Active Protocol: Document 08/13/24 13:40 MB (Rec: 08/13/24 14:38 MB [id number]) PT Summary Assessment and Plan Potential Rehabilitation Potential Good Status of Condition at Evaluation Evolving Summary Impairments Pain,ROM,Strength,Balance, Transfers,Gait,Activity Tolerance Assessment Summary Pt is a 53 y/o male presenting same day left anterior THR. Pt c/o wooziness and nausea this afternoon. Orthostatics are negative and PT cannot see labs post-op. Per rehabilitation medicine physician, goal is to d/c today and so PT ed pt in post-op exercises, precautions, packet , PT obtains RW order and delivers walker to room. SO nearby for bed mobility, transfer and gait training. Will d/c acute PT. Pt confirms his OPPT appointment at d/c and will have SO support at d/ c. Ed pt on benefits of icing and frequent gait with RW in the home. Frequency of Treatment Frequency Of Treatment Discharge Precautions Other Precautions No hyperextension left hip Weight Bearing Status Weight Bearing Status Weight Bear as Tolerated Recommendations To Nursing Amount of Assist Needed Standby Assistance Discharge Recommendations PT Discharge Recommendations Home with Assistance, Outpatient PT Transportation Needs at Discharge Private Vehicle
[2024-08-13] MEDS: CALCIUM CARBONATE 500 MG TAB PO (15:17)
--- NOTE | 2024-08-13 21:19 | PM.PN.1 ---
Subjective Subjective Interval history: The patient (or their proxy) verbally consented to this telephone encounter. This telephone encounter was conducted via secure, interactive audio telecommunications. The patient's identity was established before proceeding with the telephone encounter by confirmation of their name and an additional identifier. Reason for the call: I called the patient to follow up after their recent surgery, discuss their current medication regimen, and address any post-operative symptoms or concerns. - The patient asked for clarification on medication dosages, including Meloxicam (once a day), aspirin (twice a day starting tomorrow), and Tylenol (1,000 mg three times a day). - The patient was advised that oxycodone is for breakthrough pain after other pain management strategies. - The patient reported experiencing nausea, likely due to medications given during surgery, and had taken ondansetron (Zofran) to manage this symptom. - The patient described tightness and weakness in the surgical area, which is expected to persist for several weeks. - The patient inquired about positioning the leg for comfort and was advised that any comfortable position is acceptable. - The patient mentioned having sleep apnea, which will be addressed with their primary care physician during a physical on the . Next steps or changes to the plan: - The patient will follow up with their primary care physician regarding sleep apnea during their upcoming appointment. - The patient is scheduled to return to the clinic on the for further evaluation. Any questions asked by the patient, and the respective answers by the physician: - The patient asked if it was okay to elevate the knee slightly when resting, and I confirmed that it is acceptable to position the leg in any way that provides comfort. I spent 5 minute/s with this patient and/or family on this phone visit today. Exam Vital Signs (past 8 hours): - 08/13/24 13:30 08/13/24 14:30 Temperature 96.7 F L 96.7 F L Pulse Rate 68 68 Respiratory Rate 16 Blood Pressure 146/84 H 141/89 H Pulse Oximetry 93 94 Oxygen Delivery Method Room Air Oxygen Flow Rate 2 PFSH Medical History (Updated 07/31/24 @ 09:22 by Lorena Mart RN) Borderline hypertension Hyperlipidemia Surgical History (Updated 07/31/24 @ 09:22 by Lorena Mart RN) History of foot surgery History of colonoscopy Social History household members: spouse Smoking Status: Former smoker alcohol intake: former substance use type: does not use Assessment & Plan Time-Based Coding :: [TOTAL MINUTES] spent with patient and on the chart (including review of chart, obtaining history, exam, reviewing outside data, placing orders, documenting exam and treatment plan, and counseling patient) on [DATE]. Quality VTE Deep Vein Thrombosis/Pulmonary Embolism Present on Admission: No
== END 2024-08-13 18:30 | disposition home or self-care (01) ==
LOC: OR 10:23 → AC 11:38
PROVIDERS: PCP Physician Assistant Medical; Referring Provider Orthopaedic Surgery Adult Reconstructive Orthopaedic Surgery; Visit Provider Orthopaedic Surgery Adult Reconstructive Orthopaedic Surgery
PROC: (CPT 27130; principal; 2024-08-13 07:45)
DX: M16.12 Unilateral primary osteoarthritis, left hip (principal); M25.752 Osteophyte, left hip
CPT/HCPCS: 27130; 73502; 76000; 94762; 97110; 97161; 97535; C1776; J0330; J0690; J1100; J1171; J2060; J2250; J2405; J2704; J3010